=== PATIENT | male | born 1965 | race Caucasian/White ===

== ENCOUNTER 2017-03-05 09:52 | Day surgery (SDC) | payer OTHER ==
[~2017-03-05] VITALS: Ht 188 cm; Wt 133.9 kg
[~2017-03-05 09:52] MED LIST: ASPI-535 PO; ATOR10TA23 PO; HYDR25TA6 PO; LEVO100T87 PO; LOSA100T47 PO
[2017-03-05] MEDS ORDERED: LIDOCAINE 2% (SDV) 5 ML INJ ONE (11:48)
[2017-03-05] MEDS ORDERED: PROPOFOL 40 ML ONE (11:48)
[2017-03-05 12:10] VITALS: Ht 188 cm; Wt 133.9 kg
[2017-03-05 12:13] VITALS: BP 148/87; PULSE 75; RESP 17
--- NOTE | 2017-03-05 12:40 | OPPN ---
Date/Time of Note Date/Time of Note DATE: 03/05/17 TIME: 12:38 Operative Report Preoperative Diagnosis Screening colonoscopy Postoperative Diagnosis 5 small colon polyps were removed Internal hemorrhoids Operation/Procedure Performed Colonoscopy and biopsy Surgeon see signature line switchboard operator assistant None Anesthesia: MAC Estimated blood loss: none Transfusion Required none Specimen Colon polyps Grafts/Implants none Complications none SHANT AGUIAR MD Mar 05, 2017 12:40
--- NOTE | 2017-03-05 12:40 | OPPN ---
Date/Time of Note Date/Time of Note DATE: 03/05/17 TIME: 12:38 Operative Report Preoperative Diagnosis Screening colonoscopy Postoperative Diagnosis 5 small colon polyps were removed Internal hemorrhoids Operation/Procedure Performed Colonoscopy and biopsy Surgeon see signature line assistant reading teacher None Anesthesia: MAC Estimated blood loss: none Transfusion Required none Specimen Colon polyps Grafts/Implants none Complications none SHANT AGUIAR MD Mar 05, 2017 12:40
--- NOTE | 2017-03-05 12:40 | OPPN ---
Date/Time of Note Date/Time of Note DATE: 03/05/17 TIME: 12:38 Operative Report Preoperative Diagnosis Screening colonoscopy Postoperative Diagnosis 5 small colon polyps were removed Internal hemorrhoids Operation/Procedure Performed Colonoscopy and biopsy Surgeon see signature line internet marketing assistant None Anesthesia: MAC Estimated blood loss: none Transfusion Required none Specimen Colon polyps Grafts/Implants none Complications none SHANT AGUIAR MD Mar 05, 2017 12:40
[2017-03-05 12:58] VITALS: BP 148/79; PULSE 84; RESP 21
--- NOTE | 2017-03-06 06:33 | GILP ---
DATE OF PROCEDURE: 03/05/2017 NAME OF PROCEDURES: Colonoscopy and biopsy. SURGEON: Shant Gama MD PREOPERATIVE DIAGNOSIS: Screening colonoscopy. POSTOPERATIVE DIAGNOSES 1. Colonoscopy all the way to the cecum. 2. Five small sigmoid colon polyps were removed using the biopsy forceps. 3. Internal hemorrhoids. INDICATION FOR THE PROCEDURE: Mr. Arley Walker is a 51-year-old male patient who was scheduled for scr eening colonoscopy. The procedure and possible complications were well-explained to the patient, he understood, and cons ented to the procedure. DESCRIPTION OF PROCEDURE: Under the influence of anesthesia, the colonoscope was carefully introduc ed in the rectum and, under direct vision, it was advanced all the way to the cecum. FINDINGS: The patient had 5 small sigmoid colon polyps and they were removed using the biopsy force ps. He was noted to have internal hemorrhoids. He tolerated the procedure very well and there were no complication from the procedure. At the end of the procedure, he was awake with stable vital signs, and he was discharged home to the care of hi s family. IMPRESSION: 1. Colonoscopy all the way to the cecum. 2. Five small sigmoid colon polyps were removed using the biopsy forceps. 3. Internal hemorrhoids. PLAN: 1. Await histopathology report. 2. Next screening colonoscopy in 5 years. Dictated By: SHANT HILL/LUKAS Conf#: [id number] DID#: [id number]
== END 2017-03-05 21:06 | disposition home or self-care (01) ==
LOC: GIL 09:52
PROVIDERS: ATTEND Internal Medicine Gastroenterology
DX: Z12.11 Encounter for screening for malignant neoplasm of colon (principal); D12.5 Benign neoplasm of sigmoid colon; K63.5 Polyp of colon; K64.8 Other hemorrhoids; I10 Essential (primary) hypertension; G47.33 Obstructive sleep apnea (adult) (pediatric); E78.5 Hyperlipidemia, unspecified
CPT/HCPCS: 45380; 88305; Z7610